=== PATIENT | female | born 1965 | race Two or more races ===

== ENCOUNTER 2024-10-14 08:15 | Inpatient (IN) | payer OTHER ==
[~2024-10-14] VITALS: Ht 157.5 cm; Wt 84.8 kg
[2024-10-14] MEDS ORDERED: CYMBALTA30 MG PO (09:29)
[2024-10-14] MEDS ORDERED: CYMBALTA60 MG PO (09:29)
[2024-10-14] MEDS ORDERED: NEURONTIN300 MG PO (09:29)
[2024-10-14] MEDS ORDERED: VOLTAREN (09:30)
[2024-10-14] MEDS ORDERED: AVAPRO150 MG PO (09:30)
[2024-10-14 09:32] VITALS: BP 120/62
[2024-10-14 09:36] VITALS: BP 142/73
[2024-10-14 10:49] LABS: COVID-19 AG NEGATIVE (NEGATIVE)
[2024-10-14 11:16] LABS: RH POSITIVE
[2024-10-16] MEDS ORDERED: SURGIFLO APPLICATOR 1 EACH APPL TOP ONE (10:45)
[2024-10-16] MEDS ORDERED: HEMOSTATIC MATRIX WITH THROMBIN KIT TOP ONE (10:45)
[2024-10-16] MEDS ORDERED: CEFAZOLIN SODIUM 1,000 MG VIAL IV ONE (10:45)
[2024-10-16] MEDS ORDERED: POVIDONE-IODINE 118 ML BOTT TOP ONE (10:45)
[2024-10-16] MEDS ORDERED: METRONIDAZOLE/SODIUM CHLORIDE 500 MG/100 ML PIGGYBACK IV ONE (10:45)
[2024-10-16] MEDS ORDERED: DICLOFENAC SOD100 MG (11:07)
[2024-10-16] MEDS ORDERED: IRBESARTAN300 MG (11:07)
[2024-10-16] MEDS ORDERED: METHOTREXATE2.5 MG (11:07)
[2024-10-16] MEDS ORDERED: SULFASALAZINE500 MG (11:07)
[2024-10-16] MEDS ORDERED: RINGERS SOLUTION,LACTATED 1,000 ML IV SCH (11:15)
[2024-10-16] MEDS ORDERED: MORPHINE SULFATE 4 MG/ML CARTRIDGE IV PRN (11:15)
[2024-10-16] MEDS ORDERED: OxyCODONE HCL 5 MG TABLET (ROXICODONE) PO PRN (11:15)
[2024-10-16] MEDS ORDERED: ACETAMINOPHEN 500 MG GEL..CAP PO SCH (12:00)
[2024-10-16 15:22] LABS: BUN CREA RATIO 17.0 (7.0-25.0); CREATININE SERUM 0.92 mg/dL (0.55-1.02); GFR 62.27; GLUCOSE FASTING 126.0 mg/dL (65-100); OSMOLALITY SERUM 288.0 MOSM/KG (275-295)
[2024-10-16] MEDS ORDERED: ENALAPRILAT DIHYDRATE 1.25 MG/ML VIAL IV PRN (16:45)
[2024-10-16] MEDS ORDERED: SIMETHICONE 125 MG CAPSULE PO SCH (17:00)
[2024-10-16] MEDS ORDERED: METOCLOPRAMIDE HCL 5 MG/ML VIAL IV SCH (17:00)
[2024-10-16] MEDS ORDERED: CEFAZOLIN SODIUM 1,000 MG VIAL IV SCH (17:00)
[2024-10-16 17:04] LABS: BASO % 0.2 % (0.1-1.2); EOS # 0.02 (0.04-0.54); EOS % 0.2 % (0.7-7.0); LYMPH # 1.43 (1.18-3.74); LYMPH % 10.8 % (19.3-53.1); MEAN PLATELET VOLUME 10.30 fl (9.4-12.4); MONO # 0.58 (0.24-0.82); MONO % 4.4 % (4.7-12.5); NEUT # 11.14 (1.56-6.13); NEUT % 84.2 % (34.0-71.1); RED CELL DISTRIBUTION WIDTH 14.7 % (11.6-14.4)
[2024-10-16 17:12] VITALS: BP 120/62
[2024-10-16 17:20] VITALS: O2SAT 98
[2024-10-16] MEDS ORDERED: FAMOTIDINE/PF 20 MG/2 ML VIAL IV PUSH SCH (21:00)
[2024-10-16] MEDS ORDERED: GABAPENTIN 300 MG CAPSULE PO SCH (21:00)
[2024-10-16] MEDS ORDERED: DOCUSATE SODIUM 100MG CAP PO SCH (21:00)
[2024-10-16] MEDS ORDERED: CELECOXIB 200 MG CAPSULE PO SCH (21:00)
[2024-10-17 00:40] VITALS: BP 133/69; O2SAT 96
[2024-10-17 02:39] LABS: BASO % 0.2 % (0.1-1.2); EOS # 0.05 (0.04-0.54); EOS % 0.5 % (0.7-7.0); LYMPH # 2.34 (1.18-3.74); LYMPH % 25.2 % (19.3-53.1); MEAN PLATELET VOLUME 10.00 fl (9.4-12.4); MONO # 0.55 (0.24-0.82); MONO % 5.9 % (4.7-12.5); NEUT # 6.33 (1.56-6.13); NEUT % 68.1 % (34.0-71.1); RED CELL DISTRIBUTION WIDTH 14.7 % (11.6-14.4)
[2024-10-17 03:06] LABS: BUN CREA RATIO 15.0 (7.0-25.0); CREATININE SERUM 0.84 mg/dL (0.55-1.02); GFR 69.16; GLUCOSE FASTING 92.0 mg/dL (65-100); OSMOLALITY SERUM 287.0 MOSM/KG (275-295)
[2024-10-17 08:28] VITALS: BP 101/61; O2SAT 98
[2024-10-17] MEDS ORDERED: ENOXAPARIN SODIUM 40 MG/0.4 ML SYRINGE SUBCUTANEO SCH (09:00)
[2024-10-17] MEDS ORDERED: IRBESARTAN 150 MG TABLET PO SCH (09:00)
== END 2024-10-17 11:02 | disposition home or self-care (01) | DRG 743 ==
LOC: SURG 10-16 08:15 → O/R 10-16 08:21 → OB/GYN 10-16 08:21 → SURG 10-16 20:00 → OB/GYN 10-17 11:02
PROVIDERS: Obstetrics & Gynecology; ADMIT Obstetrics & Gynecology Gynecologic Oncology; ATTEND Obstetrics & Gynecology Gynecologic Oncology
PROC: 0UT74ZZ Resection of Bilateral Fallopian Tubes, Percutaneous Endoscopic Approach (ICD-10-PCS; 2024-10-16)
PROC: 0UT24ZZ Resection of Bilateral Ovaries, Percutaneous Endoscopic Approach (ICD-10-PCS; 2024-10-16)
PROC: 0DBW4ZZ Excision of Peritoneum, Percutaneous Endoscopic Approach (ICD-10-PCS; 2024-10-16)
PROC: 07BC4ZZ Excision of Pelvis Lymphatic, Percutaneous Endoscopic Approach (ICD-10-PCS; 2024-10-16)
PROC: 07BD4ZZ Excision of Aortic Lymphatic, Percutaneous Endoscopic Approach (ICD-10-PCS; 2024-10-16)
PROC: 0DBU4ZZ Excision of Omentum, Percutaneous Endoscopic Approach (ICD-10-PCS; 2024-10-16)
PROC: 8E0W4CZ Robotic Assisted Procedure of Trunk Region, Percutaneous Endoscopic Approach (ICD-10-PCS; 2024-10-16)
PROC: 3E1M48Z Irrigation of Peritoneal Cavity using Irrigating Substance, Percutaneous Endoscopic Approach (ICD-10-PCS; 2024-10-16)
PROC: 0UT94ZZ Resection of Uterus, Percutaneous Endoscopic Approach (ICD-10-PCS; principal; 2024-10-16 20:00)
DX: N80.03 Adenomyosis of the uterus (principal); N84.0 Polyp of corpus uteri; N72 Inflammatory disease of cervix uteri
CPT/HCPCS: 58548; 58953; 58951; 58954; 49084; S2900